=== PATIENT | male | born 1930 | race Caucasian/White ===

== ENCOUNTER 2020-03-04 18:50 | Inpatient (IN) ==
--- NOTE | 2020-03-04 19:11 | DR.AMS ---
HPI - Time Seen Time seen: 19:01 - Complaint Cheif Complaint Doctors Comments: Patient sent from snf in [place] for hypotension. EMS states they gave patient fluid bolus enroute and his blood pressure came up from 89/57 to137/73. Patient was 97 % on 4 liters. Patient n ot eating or drinking well at the snf according to nursing staff. Patient with multiple medical complaints including: Alheimers disease, diabetes, atrial fibrillation anemia, wheezing, SOB and B12 deficiency. Patient answer question but is slow to answer and do not complains of SOB or cough. States he smokes but seems to get stuck on that thought. Patient is a DNR and is COVID-19 positive. - COVID-19 Coronavirus risk:travel/contact w/high risk person: Yes Coronavirus symptoms experienced: Shortness of Breath - Reviewed Nurses Notes Reviewed: Yes - Source History Provided: EMS - Mode of Arrival Mode of Arrival: EMS - Timing Came On: Suddenly Symptoms: Worsening Symptom Onset: Unknown - Duration Duration: Unknown - Quality Quality: Not Eating - Severity Severity: Moderate - Context Recent: None History Of: Dementia, Diabetes - Associated Signs and Symptoms Associated Signs and Symptoms: Generalized Weakness, Confusion, Change in Memory, Decreased Oral Intake ROS - Review of Systems Constitutional: No Symptoms Reported, Loss of Appetite Eyes: No Symptoms Reported ENTM: No Symptoms Reported Respiratoy: No Symptoms Reported, Short of Breath Cardiovascular: No Symptoms Reported Gastrointestinal/Abdominal: No Symptoms Reported Genitourinary: No Symptoms Reported Neurological: No Symptoms Reported, Problems Walking Musculoskeletal: No Symptoms Reported Integumentary: No Symptoms Reported Hematologic/Lymphatic: No Symptoms Reported, Anemia Endocrine: Decreased Appetite Psychiatric: No Symptoms Reported PE - General Limitations: No Limitations General Appearance: Alert, In No Apparent Distress, Other (dementia) - Head Head Exam: Normal Inspection, Atraumatic, Normocephalic Head Exam Physical: negative: Laceration, Abrasion, Contusion, Hematoma, Raccoon Eyes, Lozano's Sign, Tenderness of Temporal Artery, CSF Rhinorrhea, CSF Otorrhea, Other - Eyes Eye exam: Normal Appearance, PERRL, EOMI. negative: Scleral Icterus, Conjunctival Injection, Nystagmus, Miosis, Mydrasis, Periorbital Swelling, Periorbital Tenderness, Other Pupils: Regular, Round: Bilateral - ENT ENT Exam: Normal Exam, Normal Oropharynx, Normal External Ear Exam, Mucous Membranes Moist External Ear Exam: Normal External Inspection TM/Canal Exam: Bilateral Normal Nose Exam: Normal Nose Exam Mouth Exam: Normal Inspection. negative: Drooling, Trismus, Lip Swelling, Tongue Elevation, Tongue Swelling, Laceration, Other Throat Exam: Normal Inspection - Neck Neck Exam: Normal Inspection, Full ROM, Trachea Midline - Chest Chest Inspection: Normal Inspection, Symmetric Chest Wall Rise - Respiratory Respiratory Exam: Prolonged Expiratory Phase Respiratory Exam: Bilateral Wheezing, Bilateral Decreased Breath Sounds - Cardiovascular Cardiovascular Exam: Regular Rate, Normal Rhythm, Normal Heart Sounds, Systolic Murmur - Abdominal Exam Abdominal Exam: Normal Inspection, Normal Bowel Sounds, Soft. negative: Distention, Tenderness, Guarding, Rebound, Rigidity, Dimnished Bowel Sounds, Hyperactive Bowel Sounds, Hypoactive Bowel Sounds, Organomegaly, Trauma, Incision, Ascites, Mass, Bruit, Pulsatile Mass, Hernia, Other Abdominal Tenderness: negative: RUQ, RLQ, LUQ, LLQ, Epigastrium, Suprapubic, Diffuse, Mild, Moderate, Severe, Other - Extremities Extremities Exam: Normal Inspection, Full ROM, Normal Capillary Refill - Back Back Exam: Normal Inspection, Full ROM. negative: Tenderness, (R) CVA Tenderness, (L) CVA Tenderness, Muscle Spasm, Paraspinal Tenderness, Vertebral Tenderness, Rashes, (R) Sciatic Notch Tenderness, (L) Sciatic Notch Tendern, (R) Straight Leg Raise, (L) Straight Leg Raise, Other - Neurological Neurological Exam: Alert, Reflexes Normal. negative: Oriented X3, Normal Gait (gait not tested) Patient Oriented To: Person Speech: Expressive Aphasia Cranial Nerve Exam: EOM Function (II, III, IV, ): Normal, Facial Sensation (V): Normal Cerebellar Function: negative: Normal Gait (not tested) Motor Strength - LUE: 5/5 Motor Strength - RUE: 5/5 Upper Motor Neuron Exam: Babinski Sign: Normal DTR: bicep (L): 2+, bicep (R): 2+, Patellar (L): 2+, patellar (R): 2+ - Psychological Psychiatric Exam: Normal Affect, Flat Affect Expanded Psychiatric Exam: Poor Eye Contact - Skin Skin Exam: Warm, Dry, Intact, Normal Color, Rash (lower legs with superficial varcose viens.) - Vitals Vital Signs: Temp Pulse Pulse Resp BP BP Pulse Ox 03/04/20 21:30 116 H 24 158/93 100 03/04/20 21:00 119 H 28 H 114/55 97 03/04/20 20:30 120 H 34 H 137/63 96 03/04/20 20:00 121 H 29 H 115/70 99 03/04/20 19:52 120 H 26 H 133/71 96 03/04/20 19:30 118 H 29 H 136/65 99 03/04/20 19:07 121 H 33 H 141/66 96 03/04/20 18:52 98.4 F 123 H 24 133/71 97 Course - Consultation Called: 23:48 Call Returned: 23:48 (Dr. Baumann to admit) - Education/Counseling Education/Counseling: Patient Educated On: Treatment, Diagnosis, Needs for Follow Up ROR - Labs Reviewed Laboratory Results Reviewed?: Yes (All labs and x-ray results reviewed and discussed with patient) Result Diagrams: 03/04/20 19:48 03/04/20 20:50 - XRAY XRAY Interpreted by: Radiologist (CXR: Interstitial changes the left lung base and right upper lobe which maybe due to pneumonia.) - EKG Rate: 123 Rhythm: NSR, ST Block: RBBB Hypertrophy: LVH ST: Nonsp - Labs Reviewed Laboratory: WBC 9.0 X10^3/uL (3.6-10.0) 03/04/20 19:48 RBC 3.89 X10^6/uL (4.7-6.0) L 03/04/20 19:48 Hgb 12.3 g/dL (13.5-18.0) L 03/04/20 19:48 Hct 37.4 % (42.0-54.0) L 03/04/20 19:48 MCV 96.0 fL (80.0-100.0) 03/04/20 19:48 MCH 31.5 pg (27.0-34.0) 03/04/20 19:48 MCHC 32.8 g/dL (33.0-35.0) L 03/04/20 19:48 RDW 16.7 % (11.6-16.5) H 03/04/20 19:48 Plt Count 260 X10^3/uL (150.0-450.0) 03/04/20 19:48 MPV 6.9 fL (7.4-11.0) L 03/04/20 19:48 Neut % (Auto) 77.0 % (42.0-75.0) H 03/04/20 19:48 Lymph % (Auto) 15.5 % (21.0-51.0) L 03/04/20 19:48 [place] % (Auto) 6.6 % (0.0-13.0) 03/04/20 19:48 Eos % (Auto) 0.3 % (0.9-2.9) L 03/04/20 19:48 Baso % (Auto) 0.6 % (0.2-1.0) 03/04/20 19:48 Neut # (Auto) 6.9 x10^3/uL (2.2-4.8) H 03/04/20 19:48 Lymph # (Auto) 1.4 X10^3/uL (1.3-2.9) 03/04/20 19:48 [place] # (Auto) 0.6 x10^3/uL (0.3-0.8) 03/04/20 19:48 Eos # (Auto) 0.0 x10^3/uL (0.0-0.2) 03/04/20 19:48 Baso # (Auto) 0.1 X10^3/uL (0.0-0.1) 03/04/20 19:48 Absolute Nucleated RBC 0.1 /100WBC 03/04/20 19:48 PT 14.3 SECONDS (11.8-14.3) 03/04/20 20:50 INR Target Range - 03/04/20 20:50 INR 1.15 (0.8-1.3) 03/04/20 20:50 APTT 20.2 SECONDS (22.9-36.5) L 03/04/20 Unknown PTT Comment - 03/04/20 Unknown Sample Site Rr 03/04/20 20:00 ABG pH 7.470 (7.35-7.45) H 03/04/20 20:00 ABG pCO2 29.0 mmHg (35.0-45.0) L 03/04/20 20:00 ABG pO2 83.0 mmHg (80.0-100.0) 03/04/20 20:00 ABG HCO3 21.1 mmol/L (22-26) L 03/04/20 20:00 ABG O2 Saturation 97.0 % (90-100) 03/04/20 20:00 ABG Base Excess -1.6 mmol/L (-2.0-2.0) 03/04/20 20:00 Glynn Test Pos 03/04/20 20:00 A-a Gradient 109.0 mmHg 03/04/20 20:00 FiO2 32.0 03/04/20 20:00 Blood Gas Comments Yisel well ae 03/04/20 20:00 Sodium 163 mmol/L (136-145) H* 03/04/20 20:50 Corrected Sodium 164 mmol/L (136-145) H 03/04/20 20:50 Potassium 4.8 mmol/L (3.5-5.1) 03/04/20 20:50 Chloride 127 mmol/L (98-107) H* 03/04/20 20:50 Carbon Dioxide 24.5 mmol/L (21-32) 03/04/20 20:50 BUN 62 mg/dL (7-18) H 03/04/20 20:50 Creatinine 2.45 mg/dL (0.70-1.30) H 03/04/20 20:50 Est GFR (MDRD) Af Amer 32 (>60) L 03/04/20 20:50 Est GFR (MDRD) Non-Af 27 (>60) L 03/04/20 20:50 Glucose 142 mg/dL (65-99) H 03/04/20 20:50 Calcium 9.1 mg/dL (8.5-10.1) 03/04/20 20:50 Corrected Calcium 10.5 mg/dL (8.5-10.1) H 03/04/20 20:50 Magnesium 2.7 mg/dL (1.7-2.9) 03/04/20 20:50 Ferritin 690 ng/mL (26-388) H 03/04/20 20:50 Total Bilirubin 0.50 mg/dL (0.2-1.0) 03/04/20 20:50 AST 43 Units/L (15-37) H 03/04/20 20:50 ALT 18 Units/L (12-78) 03/04/20 20:50 Alkaline Phosphatase 68 Units/L (46-116) 03/04/20 20:50 Creatine Kinase 116 Units/L (39-308) 03/04/20 20:50 CK-MB (CK-2) 19.1 ng/mL (0-4.0) H* 03/04/20 20:50 CK/CKMB % Calc 16.5 % (<4) 03/04/20 20:50 Troponin I 6.36 ng/mL (0-1.5) H* 03/04/20 20:50 C-Reactive Protein 34.70 mg/L (0-3.0) H 03/04/20 20:50 Total Protein 6.2 g/dL (6.4-8.2) L 03/04/20 20:50 Albumin 2.2 g/dL (3.4-5.0) L 03/04/20 20:50 Globulin 4.0 g/dL (2.5-4.5) 03/04/20 20:50 Albumin/Globulin Ratio 0.6 Ratio (1.1-2.1) L 03/04/20 20:50 SARS-CoV-2 (PCR) Positive (NEGATIVE) A 03/04/20 22:31 Opioid - Opioid Risk Tool Total: 0 Total Score Risk Category: Low Risk - Diagnosis Discharge Problem: COVID-19 virus infection, Hypernatremia, Dehydration, Pneumonia due to COVID-19 virus, Chronic kidney disease (CKD), Hyperglycemia - Discharge Plan Disposition: ADMITTED INPATIENT Condition: Stable - Follow ups/Referrals Follow ups/Referrals: NFD,None [STAFF PHYSICIAN] - 3 days - Instructions
[2020-03-04] MEDS ORDERED: NS 1000 ML 1,000 ML IV ONE (19:32)
[2020-03-04] MEDS ORDERED: NS 1000 ML 1,000 ML ONE (19:53)
[2020-03-04 19:58] LABS: BASOPHILS # (AUTO) 0.1 X10^3/uL (0.0-0.1); BASOPHILS % (AUTO) 0.6 % (0.2-1.0); EOSINOPHILS % (AUTO) 0.3 % (0.9-2.9); HEMATOCRIT 37.4 % (42.0-54.0); HEMOGLOBIN 12.3 g/dL (13.5-18.0); LYMPHOCYTES # (AUTO) 1.4 X10^3/uL (1.3-2.9); LYMPHOCYTES % (AUTO) 15.5 % (21.0-51.0); MEAN CORPUSCULAR HEMOGLOBIN 31.5 pg (27.0-34.0); MEAN CORPUSCULAR HGB CONC 32.8 g/dL (33.0-35.0); MEAN PLATELET VOLUME 6.9 fL (7.4-11.0); MONOCYTES # (AUTO) 0.6 x10^3/uL (0.3-0.8); MONOCYTES % (AUTO) 6.6 % (0.0-13.0); NEUTROPHILS # (AUTO) 6.9 x10^3/uL (2.2-4.8); PLATELET COUNT 260 X10^3/uL (150.0-450.0); RED BLOOD COUNT 3.89 X10^6/uL (4.7-6.0); RED CELL DISTRIBUTION WIDTH 16.7 % (11.6-16.5)
[2020-03-04] MEDS ORDERED: NS 1000 ML 0 ML ONE (20:04)
[2020-03-04 20:06] LABS: ABG BASE EXCESS -1.6 mmol/L (-2.0-2.0); ABG HCO3 21.1 mmol/L (22-26)
[2020-03-04 20:07] LABS: ABG ALLEN TEST POS
--- NOTE | 2020-03-04 20:10 | RAD ---
HISTORYPT IN ED VIA STRETCHER FROM [facility] PER [facility] WITH C/O LOW O2 SAT AND HYPOTENSIVE. PT ALERT BUT CONFUSED. HAS HX OF ALZHEIMERS. IV 20G IN LEFT AC WITH NS INFUSING PER EMS. TESTED POSITIVE FOR COVID A LITTLE OVER A TRUNCATED ...STUDYCHEST, 1 VIEWCOMPARISONNoneFINDINGSThe trachea is midline. The cardiac silhouette is unremarkable . The lungs demonstrate some interstitial changes in left lung base and right upper lobe which may be due to pneumonia however there are no priors for comparison. The bony thorax is unremarkable.IMPRESSIONInterstitial changes the left lung base are right upper lobe as above which could be due to pneumonia.Electronically signed by: JEAN MARIE CHESTER (Mar 04, 2020 20:09:31)
[2020-03-04] MEDS ORDERED: SOLU-Medrol 125 MG VIAL IVP ONE (20:12)
[2020-03-04] MEDS ORDERED: ROCEPHIN VIAL 1 GRAM 1 G in NS 100 ML IV + SPIKE MINIBAG* 100 ML IV SCH (20:15)
[2020-03-04] MEDS ORDERED: SOLU-Medrol 125 MG VIAL ONE (20:25)
[2020-03-04] MEDS ORDERED: NS 100 ML IV + SPIKE MINIBAG* 100 ML IV ONE (20:26)
[2020-03-04] MEDS ORDERED: ROCEPHIN VIAL 1 GRAM ONE (20:26)
[2020-03-04 20:35] LABS: ALBUMIN 2.2 g/dL (3.4-5.0); CALCIUM 9.1 mg/dL (8.5-10.1); CARBON DIOXIDE 24.5 mmol/L (21-32); CKMB % 16.5 % (<4); COR CA(FOR HYPOALB) 10.5 mg/dL (8.5-10.1); CREATININE 2.45 mg/dL (0.70-1.30); MAGNESIUM 2.7 mg/dL (1.7-2.9); TOTAL PROTEIN 6.2 g/dL (6.4-8.2)
[2020-03-04 21:08] LABS: TROPONIN I 6.36 ng/mL (0-1.5)
[2020-03-04 21:09] LABS: CREATINE KINASE MB 19.1 ng/mL (0-4.0)
[2020-03-04] MEDS ORDERED: NS 1/2 1000 ML IV 1,000 ML IV ONE (21:16)
[2020-03-04] MEDS: NS 1/2 1000 ML IV 1,000 ML IV SCH (21:19)
[2020-03-05] MEDS ORDERED: NS 1/2 1000 ML IV 1,000 ML IV SCH (01:00)
[2020-03-05 03:20] VITALS: BMI 25.5
[2020-03-05] MEDS ORDERED: DUONEB 0.5 MG/3 MG (3 mL) NEB ONE (03:38)
[2020-03-05] MEDS ORDERED: PHARMACY CONSULT LTC MEDICATIONS XX SCH (04:00)
[2020-03-05] MEDS: DUONEB 0.5 MG/3 MG (3 mL) NEB SCH ×3 (05:47→22:15)
[2020-03-05 06:27] LABS: BASOPHILS % (AUTO) 0.1 % (0.2-1.0); HEMATOCRIT 32.5 % (42.0-54.0); HEMOGLOBIN 10.7 g/dL (13.5-18.0); LYMPHOCYTES # (AUTO) 0.7 X10^3/uL (1.3-2.9); LYMPHOCYTES % (AUTO) 5.8 % (21.0-51.0); MEAN CORPUSCULAR HEMOGLOBIN 31.9 pg (27.0-34.0); MEAN CORPUSCULAR VOLUME 96.6 fL (80.0-100.0); MEAN PLATELET VOLUME 7.6 fL (7.4-11.0); MONOCYTES # (AUTO) 0.2 x10^3/uL (0.3-0.8); MONOCYTES % (AUTO) 1.8 % (0.0-13.0); NEUTROPHILS # (AUTO) 11.3 x10^3/uL (2.2-4.8); NEUTROPHILS % (AUTO) 92.3 % (42.0-75.0); PLATELET COUNT 114 X10^3/uL (150.0-450.0); RED BLOOD COUNT 3.36 X10^6/uL (4.7-6.0); RED CELL DISTRIBUTION WIDTH 16.3 % (11.6-16.5); WHITE BLOOD COUNT 12.2 X10^3/uL (3.6-10.0)
[2020-03-05 06:39] LABS: ALBUMIN 2.1 g/dL (3.4-5.0); CALCIUM 8.4 mg/dL (8.5-10.1); CARBON DIOXIDE 19.9 mmol/L (21-32); COR CA(FOR HYPOALB) 9.9 mg/dL (8.5-10.1); CREATININE 1.99 mg/dL (0.70-1.30)
[2020-03-05 07:15] LABS: BAND NEUTROPHILS % 10 % (0-10)
[2020-03-05 07:16] LABS: PLATELET MORPHOLOGY COMMENT NORMAL (NORMAL)
[2020-03-05] MEDS ORDERED: VITAMIN D (1.25MG) PO SCH (09:00)
[2020-03-05] MEDS ORDERED: LOVENOX INJ 30 MG SYR SC SCH ×2 (09:00)
[2020-03-05] MEDS ORDERED: NS 1/2 1000 ML IV 0 ML IV ONE (09:51)
[2020-03-05] MEDS: NS 1/2 1000 ML IV 1,000 ML IV SCH (09:52)
[2020-03-05] MEDS: DECADRON TAB PO SCH (09:53)
[2020-03-05] MEDS: D5W 1000 ML IV 1,000 ML IV SCH ×2 (09:59→18:51)
[2020-03-05] MEDS: PULMICORT NEB TX 0.5 MG NEB SCH ×2 (10:00→22:15)
[2020-03-05 10:15] LABS: CKMB % 12.7 % (<4)
[2020-03-05 10:19] LABS: CREATINE KINASE MB 19.4 ng/mL (0-4.0); TROPONIN I 8.45 ng/mL (0-1.5)
[2020-03-05] MEDS: LEVAQUIN PREMIX IV 500 MG 500 MG/100 ML BAG IV SCH (14:57)
[2020-03-05 15:30] LABS: CKMB % 10.9 % (<4)
[2020-03-05 15:38] LABS: CREATINE KINASE MB 13.2 ng/mL (0-4.0); TROPONIN I 8.92 ng/mL (0-1.5)
[2020-03-05] MEDS ORDERED: ROCEPHIN VIAL 1 GRAM 1 G in NS 100 ML IV + SPIKE MINIBAG* 100 ML IV SCH (21:00)
[2020-03-05 21:18] LABS: CKMB % 10.7 % (<4)
[2020-03-05 21:25] LABS: CREATINE KINASE MB 10.8 ng/mL (0-4.0); TROPONIN I 7.37 ng/mL (0-1.5)
--- NOTE | 2020-03-05 21:47 | DR.H&P ---
H&P - History & Physical for Day of: H&P Date: 03/04/20 - Chief Complaint Chief Complaint: HYPOXIA, HYPOTENSION, COVID 19 POSITIVE, DECREASED ORAL INTAKE, SHORTNESS OF BREATH, COUGH, AND WEAKNESS - History of Present Illness History of Present Illness: IS A 89 YEAR OLD RESIDENT OF [facility]. HE PRESENTED TO THE HOSPITAL WITH REPORTS OF HYPOXIA, HYPOTENSION, COVID 19 POSITIVE, DECREASED ORAL INTAKE, SHORTNESS OF BREATH, COUGH, AND WEAKNESS. SYMPTOMS STARTED APPROXIMATELY ONE WEEK PRIOR. APPARENTLY, HIS BLOOD PRESSURE WAS NOTED TO BE 89/57 WHEN EMS ARRIVED TO TRANSPORT HIM. THEY GAVE HIM A FLUID BOLUS IN ROUTE. OXYGEN SATURATIONS WERE IN THE 80s WHEN EMS ARRIVED TO SCENE. BLOOD PRESSURE WAS NOTED TO INCREASE TO 137/73. HE WAS WEARING OXYGEN VIA NASAL CANNULA AT 4LPM ON ARRIVAL. HIS PAST MEDICAL HISTORY INCLUDES: DEMENTIA, ALZHEIMERS, CAD, HYPERLIPIDEMAI, HTN, A-FIB, GERD, BPH, AND DIABETES TYPE II. HE IS A DNR. ON ARRIVAL TO THE ER, VITALS WERE 98.4-123-24-97%-133/71. LABS WERE OBTAINED. ABNORMAL LAB VALUES INCLUDE THE FOLLOWING: RBC 3.89, HGB 12.3, HCT 37.4, SODIUM 163, CHLORIDE 127, BUN 62, CREATININE 2.45, GLUCOSE 142, FERRITIN 690, AST 43, CK-MB 19.1, TROPONIN 6.36, CRP 34.70, TOTAL PROTEIN 6.2, ALBUMIN 2.2. AN ABG WAS OBTAINED AND REVEALED: PH 7.470, PC02 29, P02 83, HC03 21.1, 02 SATURATION 97, FI02 32. COVID-19 POSITIVE. A CHEST XRAY WAS OBTAINED AND REVEALED: Interstitial changes the left lung base are right upper lobe as above which could be due to pneumonia. AN EKG WAS OBTAINED AND REVEALED: SINUS TACHYCARDIA WITH HR 123, INCOMPLETE RIGHT BUNDLE BRANCH BLOCK. PATIENT IS DNR A ND DOES NOT REQUEST TRANSFER FOR TREATMENT OF POSSIBLE PA. HE WAS ADMITTED TO THE HOSPITAL FOR FURTHER EVALUATION AND TREATMENT OF PNEUMONIA DUE TO COVID-19, ACUTE PA, HYPERNATREMIA, DEHYDRATION, AND GENERALIZED WEAKNESS. HE WAS GIVEN ROCEPHIN 1G IV X 1, SOLU-MEDROL 125MG IV X 1, AND A NORMAL SALINE BOLUS IN THE ER. HE WAS STARTED ON D5W AT 125 ML/HR, DUONEBS TID, PULMICORT NEBS BID, DECADRON 6MG PO DAILY, LOVENOX 30MG SC DAILY, LEVAQUIN 500MG IV DAILY, VITAMIN A DAILY, AND VITAMIN D DAILY. WE WILL REVIEW HIS HOME MEDICATIONS. WE WILL OBTAIN SERIAL CARDIAC ENZYMES AND EKGs. OTHERWISE, WE WILL FOLLOW UP WITH AM LABS, CHEST XRAY, ABG, AND CONTINUE TO MONITOR. - Past Medical History Past Medical History: Alzheimers, Anemia, Coronary Artery Disease, Dementia, Diabetes, Dyslipidemia, GERD - Social History Alcohol Use: None Drug Use: None - Medications Home Medications: No Known Drug Allergies Allergy (Verified 03/04/20 19:27) CONTINUE taking the following medications acetaminophen [Tylenol] 650 mg PO Q4H PRN 03/04/20 [History] aspirin [Aspir-81] 81 mg PO DAILY 03/04/20 [History] bisacodyl [Dulcolax (bisacodyl)] 10 mg PO Q24H PRN 03/04/20 [History] carboxymethylcellulose sodium 2 drp OPHTHALMIC (EYE) BID PRN 03/04/20 [History] clopidogrel [Plavix] 75 mg PO DAILY 03/04/20 [History] cyanocobalamin (vitamin B-12) 1,000 mcg IM DAILY 03/04/20 [History] diltiazem HCl [Cardizem] 120 mg PO DAILY 03/04/20 [History] folic acid 1 mg PO DAILY 03/04/20 [History] hydralazine 50 mg PO BID 03/04/20 [History] hydrochlorothiazide 12.5 mg PO DAILY 03/04/20 [History] ipratropium-albuterol [Combivent Respimat] 3 puff INHALATION Q4-6H PRN 03/04/20 [History] ipratropium-albuterol [Combivent Respimat] 20 - 100 puff INHALATION Q6H PRN 03/04/20 [History] lisinopril [Zestril] 10 mg PO DAILY 03/04/20 [History] megestrol 40 mg PO BID 03/04/20 [History] memantine [Namenda] 5 mg PO BID 03/04/20 [History] polyethylene glycol 3350 [Miralax] 17 g PO DAILY 03/04/20 [History] potassium chloride [K-Tab] 10 meq PO TID 03/04/20 [History] rivastigmine [Exelon] 4.6 mg TRANSDERMAL DAILY 03/04/20 [History] sertraline [Zoloft] 25 mg PO BID 03/04/20 [History] simvastatin [Zocor] 10 mg PO HS 03/04/20 [History] tamsulosin [Flomax] 0.4 mg PO DAILY 03/04/20 [History] tramadol 50 mg PO Q6H PRN 03/04/20 [History] - Review of Systems Constitutional: See HPI, Weakness, Malaise, Other (DECREASED ORAL INTAKE ) Eyes: No Symptoms Reported ENT: No Symptoms Reported Respiratory: See HPI, Cough, Shortness of Breath, SOB with Excertion, Wheezing Cardiovascular: No Symptoms Reported Gastrointestinal: No Symptoms Reported Genitourinary: No Symptoms Reported Musculoskeletal: No Symptoms Reported Skin: No Symptoms Reported Neurological: Weakness - Physical Exam Vital Signs: Temperature 98.0 F Pulse Rate [Right Radial] 117 Pulse Rate 98 Respiratory Rate 22 Blood Pressure [Right Arm] 139/66 Blood Pressure 140/70 O2 Sat by Pulse Oximetry 100 Oriented: Not Oriented Eyes: Normal Ear: Normal Nose: Normal Throat: Normal Respiratory: Diminished Throughout, Wheezes Throughout Cardiovascular: Tachycardia : Normal Auscultation: Bowel Sounds: Normal Palpation: Normal Tenderness: Normal Skin: Normal Musculoskeletal: Normal Psychiatric: Normal Mood Description: Calm Affect: Normal Speech Pattern: Clear - Assessment/Plan (1) Pneumonia due to COVID-19 virus Status: Acute Plan: ADMIT, D5W AT 125 ML/HR, DUONEBS TID, PULMICORT NEBS BID, DECADRON 6MG PO DAILY, LOVENOX 30MG SC DAILY, LEVAQUIN 500MG IV DAILY, VITAMIN A DAILY, AND VITAMIN D DAILY. WE WILL REVIEW HIS HOME MEDICATIONS. SUPPLEMENTAL OXYGEN (2) Acute PA Qualifiers: Myocardial infarction type: unspecified Involved coronary artery: unspecified coronary artery Qualified Code(s): I21.9 - Acute myocardial infarction, unspecified Status: Acute (3) Generalized weakness Status: Acute (4) Hypernatremia Status: Acute (5) Dehydration Status: Acute - Allergies Allergies/Adverse Reactions: Allergies Allergy/AdvReac Type Severity Reaction Status Date / Time No Known Drug Allergies Allergy Verified 03/04/20 19:27
[2020-03-06] MEDS: D5W 1000 ML IV 1,000 ML IV SCH ×4 (03:57→18:23)
[2020-03-06] MEDS: DUONEB 0.5 MG/3 MG (3 mL) NEB SCH ×3 (05:30→22:00)
[2020-03-06 06:09] LABS: BASOPHILS % (AUTO) 0.4 % (0.2-1.0); HEMATOCRIT 28.5 % (42.0-54.0); HEMOGLOBIN 9.7 g/dL (13.5-18.0); LYMPHOCYTES # (AUTO) 1.1 X10^3/uL (1.3-2.9); LYMPHOCYTES % (AUTO) 12.4 % (21.0-51.0); MEAN CORPUSCULAR HEMOGLOBIN 32.1 pg (27.0-34.0); MEAN CORPUSCULAR HGB CONC 33.8 g/dL (33.0-35.0); MEAN CORPUSCULAR VOLUME 94.8 fL (80.0-100.0); MEAN PLATELET VOLUME 7.9 fL (7.4-11.0); MONOCYTES # (AUTO) 0.3 x10^3/uL (0.3-0.8); MONOCYTES % (AUTO) 3.3 % (0.0-13.0); NEUTROPHILS # (AUTO) 7.5 x10^3/uL (2.2-4.8); NEUTROPHILS % (AUTO) 83.9 % (42.0-75.0); PLATELET COUNT 111 X10^3/uL (150.0-450.0); RED BLOOD COUNT 3.01 X10^6/uL (4.7-6.0); WHITE BLOOD COUNT 8.9 X10^3/uL (3.6-10.0)
[2020-03-06 06:25] LABS: ABG BASE EXCESS -3.5 mmol/L (-2.0-2.0); ABG HCO3 20.1 mmol/L (22-26)
[2020-03-06 06:28] LABS: ABG ALLEN TEST POSS
[2020-03-06 07:19] LABS: CALCIUM 8.2 mg/dL (8.5-10.1); CARBON DIOXIDE 21.9 mmol/L (21-32); CKMB % 9.9 % (<4); COR CA(FOR HYPOALB) 9.8 mg/dL (8.5-10.1); CREATININE 1.66 mg/dL (0.70-1.30); TOTAL PROTEIN 5.5 g/dL (6.4-8.2)
[2020-03-06 07:30] LABS: CREATINE KINASE MB 7.7 ng/mL (0-4.0); TROPONIN I 7.19 ng/mL (0-1.5)
[2020-03-06 07:58] LABS: PLATELET MORPHOLOGY COMMENT NORMAL (NORMAL)
--- NOTE | 2020-03-06 08:14 | RAD ---
HISTORYShort of breathSTUDYCHEST, 1 [id number] view of the chestFINDINGSThe cardiac and mediastinal contours appear within normal limits. Stable mild scattered bilateral interstitial opacities. No pleural effusion or pneumothorax.IMPRESSIONNo significant change in mild scattered interstitial opacities. This could be due to pneumonia.Electronically signed by: Abraham Conner (Mar 06, 2020 08:13:13)
[2020-03-06] MEDS ORDERED: ULTRAM PO PRN (08:29)
[2020-03-06] MEDS ORDERED: DULCOLAX TAB EC 5 MG PO PRN (08:29)
[2020-03-06] MEDS ORDERED: TYLENOL 325 MG TAB PO PRN (08:29)
[2020-03-06] MEDS ORDERED: ASPIRIN EC 81 MG PO SCH (09:00)
[2020-03-06] MEDS: PULMICORT NEB TX 0.5 MG NEB SCH ×2 (10:00→22:00)
[2020-03-06] MEDS: LEVAQUIN PREMIX IV 500 MG 500 MG/100 ML BAG IV SCH (10:35)
[2020-03-06] MEDS: LOVENOX INJ 80 MG SYR SC SCH ×2 (10:36→22:23)
[2020-03-06] MEDS: EXELON PATCH TD SCH (15:25)
[2020-03-06] MEDS: ZOLOFT PO SCH ×2 (16:14→22:34)
[2020-03-06] MEDS: CARDIZEM CD 120 MG 24-HR PO SCH (16:14)
[2020-03-06] MEDS: APRESOLINE TAB 25 MG PO SCH ×2 (16:14→22:31)
[2020-03-06] MEDS: FLOMAX PO SCH (16:15)
[2020-03-06] MEDS: MIRALAX POWDER (1 DOSE 17 G) PO SCH (16:15)
[2020-03-06] MEDS: DECADRON TAB PO SCH (16:15)
[2020-03-06] MEDS: FOLIC ACID TAB 1 MG PO SCH (16:15)
[2020-03-06] MEDS: MEGACE PO SCH ×2 (16:15→22:31)
[2020-03-06] MEDS: NAMENDA TAB 10 MG PO SCH ×2 (16:16→22:32)
[2020-03-06] MEDS: ZESTRIL TAB 10 MG PO SCH (16:16)
[2020-03-06] MEDS: VITAMIN A PO SCH (16:16)
[2020-03-06] MEDS: ZOCOR TAB 10 MG PO SCH ×2 (22:32→22:33)
[2020-03-07] MEDS: D5W 1000 ML IV 1,000 ML IV SCH ×3 (01:28→17:04)
[2020-03-07 04:41] LABS: ABG ALLEN TEST POSS; ABG BASE EXCESS -2.8 mmol/L (-2.0-2.0); ABG HCO3 20.6 mmol/L (22-26)
[2020-03-07] MEDS: DUONEB 0.5 MG/3 MG (3 mL) NEB SCH ×3 (05:27→21:10)
--- NOTE | 2020-03-07 06:09 | RAD ---
HISTORYCOVID+STUDYCHEST, 1 [id number]/2020FINDINGSThe trachea is midline. The cardiac silhouette is unremarkable. Patchy bibasilar opacities. No pleural effusion or pneumothorax.. The bony thorax is unremarkable.IMPRESSIONPatchy bibasilar opacities; no change from previous 03/06/2020Electronically signed by: Zachary Samayoa (Mar 07, 2020 06:08:34)
[2020-03-07 06:44] LABS: ALANINE AMINOTRANSFERASE 20 Units/L (12-78); ALBUMIN 1.9 g/dL (3.4-5.0); ALKALINE PHOSPHATASE 53 Units/L (46-116); ASPARTATE AMINO TRANSFERASE 25 Units/L (15-37); BLOOD UREA NITROGEN 34 mg/dL (7-18); CALCIUM 7.8 mg/dL (8.5-10.1); CARBON DIOXIDE 21.7 mmol/L (21-32); CHLORIDE 110 mmol/L (98-107); COR CA(FOR HYPOALB) 9.5 mg/dL (8.5-10.1); CREATININE 1.29 mg/dL (0.70-1.30); SODIUM 142 mmol/L (136-145); TOTAL PROTEIN 5.3 g/dL (6.4-8.2); eGFR NON BLACK RACES 56 (>60)
[2020-03-07 07:53] LABS: BASOPHILS % (AUTO) 0.3 % (0.2-1.0); EOSINOPHILS % (AUTO) 0.4 % (0.9-2.9); HEMATOCRIT 26.5 % (42.0-54.0); HEMOGLOBIN 9.2 g/dL (13.5-18.0); LYMPHOCYTES # (AUTO) 1.5 X10^3/uL (1.3-2.9); LYMPHOCYTES % (AUTO) 21.3 % (21.0-51.0); MEAN CORPUSCULAR HEMOGLOBIN 32.2 pg (27.0-34.0); MEAN CORPUSCULAR HGB CONC 34.8 g/dL (33.0-35.0); MEAN CORPUSCULAR VOLUME 92.7 fL (80.0-100.0); MEAN PLATELET VOLUME 7.5 fL (7.4-11.0); MONOCYTES # (AUTO) 0.4 x10^3/uL (0.3-0.8); MONOCYTES % (AUTO) 5.1 % (0.0-13.0); NEUTROPHILS # (AUTO) 5.2 x10^3/uL (2.2-4.8); NEUTROPHILS % (AUTO) 72.9 % (42.0-75.0); PLATELET COUNT 120 X10^3/uL (150.0-450.0); RED BLOOD COUNT 2.86 X10^6/uL (4.7-6.0); RED CELL DISTRIBUTION WIDTH 15.4 % (11.6-16.5); WHITE BLOOD COUNT 7.1 X10^3/uL (3.6-10.0)
[2020-03-07 08:41] LABS: BAND NEUTROPHILS % 6 % (0-10)
[2020-03-07 08:42] LABS: PLATELET MORPHOLOGY COMMENT NORMAL (NORMAL)
[2020-03-07] MEDS: PULMICORT NEB TX 0.5 MG NEB SCH ×2 (08:55→21:10)
[2020-03-07] MEDS: LOVENOX INJ 80 MG SYR SC SCH (09:38)
[2020-03-07] MEDS: EXELON PATCH TD SCH (09:39)
--- NOTE | 2020-03-07 11:55 | PCM.PROG ---
Progress Note - Progress Note for Day of Date of Exam: 03/06/20 - Subjective Subjective: IS BEING TREATED FOR PNEUMONIA DUE TO COVID-19, ACUTE IA, GENERALIZED WEAKNESS, AND HYPERNATREMIA. TODAY, HE IS ALERT, SITTING ON THE SIDE OF THE BED ON MORNING ROUNDS. HE CONTINUES WITH WEAKNESS, COUGH, AND SHORTNESS OF BREATH. HE ALSO REPORTS DIFFICULTY SWALLOWING. STAFF REPORTS THAT HE IS GETTING STRANGLED ON THICKENED LIQUIDS AND SOFT FOODS. ON EXAMINATION, HEART IS REGULAR IN RATE AND RHYTHM. BILATERAL LUNGS ARE NOTED WITH SCATTERED WHEEZING THROUGHOUT. ABDOMEN IS ROUND, SOFT, AND NON-TENDER WITH NORMAL BOWEL SOUNDS IN ALL QUADRANTS. HIS VITALS THIS MORNING ARE: 97.7-100-22-97%NC-149/68. LABS WERE OBTAINED. ABNORMAL LAB VALUES INCLUDE THE FOLLOWING: RBC 3.01, HGB 9. 7, HCT 28.5, PLT COUNT 111, SODIUM 152, CHLORIDE 119, BUN 53, CREATININE 1.66, GLUCOSE 136, CALCIUM 8.2, FERRITIN 522, CRP 29.50, TOTAL PROTEIN 2.0, CK-MB 7.7, TROPONIN HAS DECREASED TO 7.19. IT DID REACH 8.92 YESTERDAY. ABG REVEALED: PH 7.420, PC02 31, P02 107, HC03 20.1, 02 SAT 98, FI02 32. A CHEST XRAY WAS OBTAINED AND REVEALED: No significant change in mild scattered interstitial opacities. This could be due to pneumonia. HE IS CURRENTLY RECEIVING D5W AT 125 ML/HR, DUONEBS TID, PULMICORT NEBS BID, DECADRON 6MG PO DAILY, LOVENOX 30MG SC DAILY, LEVAQUIN 500MG IV DAILY, VITAMIN A DAILY, AND VITAMIN D DAILY. WE WILL CONTINUE WITH CURRENT PLAN OF CARE TODAY. OTHERWISE, WE WILL FOLLOW UP WITH AM LABS AND CHEST XRAY AND CONTINUE TO MONITOR. - Past Medical Family Social History Past Med/Fam/Surg Hx: No changes since H&P Allergies: Allergies No Known Drug Allergies Allergy (Verified 03/04/20 19:27) - Review of Systems ROS: No change since H&P - Vital Signs and I&O's Vital Signs: Temperature 97.8 F Pulse Rate [Right Radial] 84 Pulse Rate 84 Respiratory Rate 20 Blood Pressure [Right Arm] 140/65 Blood Pressure 140/70 O2 Sat by Pulse Oximetry 96 Intake and Output: Intake & Output 03/04/20 03/05/20 03/06/20 03/07/20 11:59 11:59 11:59 11:59 Intake Total 298 / 298 3536 / 3536 2996 / 2996 Balance 298 / 298 3536 / 3536 2996 / 2996 - Physical Exam Oriented: Person Eyes: Normal Ear: Normal Nose: Normal Throat: Normal Respiratory: Generalized, Diminished, Wheezes Cardiovascular: Normal : Normal Auscultation: Bowel Sounds: Normal Palpation: Normal Tenderness: Normal Skin: Normal Musculoskeletal: Normal Psychiatric: Normal Mood Description: Calm Affect: Normal Speech Pattern: Appropriate - Laboratory and Diagnostics Result Diagrams: 03/07/20 07:35 03/07/20 05:00 Labs: Laboratory WBC 7.1 X10^3/uL (3.6-10.0) 03/07/20 07:35 RBC 2.86 X10^6/uL (4.7-6.0) L 03/07/20 07:35 Hgb 9.2 g/dL (13.5-18.0) L 03/07/20 07:35 Hct 26.5 % (42.0-54.0) L 03/07/20 07:35 MCV 92.7 fL (80.0-100.0) 03/07/20 07:35 MCH 32.2 pg (27.0-34.0) 03/07/20 07:35 MCHC 34.8 g/dL (33.0-35.0) 03/07/20 07:35 RDW 15.4 % (11.6-16.5) 03/07/20 07:35 Plt Count 120 X10^3/uL (150.0-450.0) L 03/07/20 07:35 Plt Count Comment Decreased (ADEQUATE) 03/07/20 07:35 MPV 7.5 fL (7.4-11.0) 03/07/20 07:35 Neut % (Auto) 72.9 % (42.0-75.0) 03/07/20 07:35 Lymph % (Auto) 21.3 % (21.0-51.0) 03/07/20 07:35 [place] % (Auto) 5.1 % (0.0-13.0) 03/07/20 07:35 Eos % (Auto) 0.4 % (0.9-2.9) L 03/07/20 07:35 Baso % (Auto) 0.3 % (0.2-1.0) 03/07/20 07:35 Neut # (Auto) 5.2 x10^3/uL (2.2-4.8) H 03/07/20 07:35 Lymph # (Auto) 1.5 X10^3/uL (1.3-2.9) 03/07/20 07:35 [place] # (Auto) 0.4 x10^3/uL (0.3-0.8) 03/07/20 07:35 Eos # (Auto) 0.0 x10^3/uL (0.0-0.2) 03/07/20 07:35 Baso # (Auto) 0.0 X10^3/uL (0.0-0.1) 03/07/20 07:35 Absolute Nucleated RBC 0.0 /100WBC 03/07/20 07:35 Total Counted 100 03/07/20 07:35 Neutrophils % (Manual) 71 % (39-76) 03/07/20 07:35 Band Neutrophils % 6 % (0-10) 03/07/20 07:35 Lymphocytes % (Manual) 20 % (13-43) 03/07/20 07:35 Monocytes % (Manual) 4 % (4-9) 03/07/20 07:35 Plt Clumps, EDTA Rare 03/05/20 04:35 Plt Morphology Comment Normal (NORMAL) 03/07/20 07:35 RBC Morphology Normal (NORMAL) 03/07/20 07:35 PT 14.3 SECONDS (11.8-14.3) 03/04/20 20:50 INR Target Range - 03/04/20 20:50 INR 1.15 (0.8-1.3) 03/04/20 20:50 APTT 20.2 SECONDS (22.9-36.5) L 03/04/20 21:25 PTT Comment - 03/04/20 21:25 Sample Site R rad 03/07/20 04:30 ABG pH 7.430 (7.35-7.45) 03/07/20 04:30 ABG pCO2 31.0 mmHg (35.0-45.0) L 03/07/20 04:30 ABG pO2 85.0 mmHg (80.0-100.0) 03/07/20 04:30 ABG HCO3 20.6 mmol/L (22-26) L 03/07/20 04:30 ABG O2 Saturation 97.0 % (90-100) 03/07/20 04:30 ABG Base Excess -2.8 mmol/L (-2.0-2.0) L 03/07/20 04:30 Glynn Test Poss 03/07/20 04:30 A-a Gradient 104.0 mmHg 03/07/20 04:30 FiO2 32.0 03/07/20 04:30 Blood Gas Comments Yisel well kb 03/07/20 04:30 Sodium 142 mmol/L (136-145) 03/07/20 05:00 Corrected Sodium TNP 03/07/20 05:00 Potassium 3.1 mmol/L (3.5-5.1) L 03/07/20 05:00 Chloride 110 mmol/L (98-107) H 03/07/20 05:00 Carbon Dioxide 21.7 mmol/L (21-32) 03/07/20 05:00 BUN 34 mg/dL (7-18) H 03/07/20 05:00 Creatinine 1.29 mg/dL (0.70-1.30) 03/07/20 05:00 Est GFR (MDRD) Af Amer > 60 (>60) 03/07/20 05:00 Est GFR (MDRD) Non-Af 56 (>60) L 03/07/20 05:00 Glucose 104 mg/dL (65-99) H 03/07/20 05:00 Calcium 7.8 mg/dL (8.5-10.1) L 03/07/20 05:00 Corrected Calcium 9.5 mg/dL (8.5-10.1) 03/07/20 05:00 Magnesium 2.7 mg/dL (1.7-2.9) 03/04/20 20:50 Ferritin 405 ng/mL (26-388) H 03/07/20 05:00 Total Bilirubin 0.30 mg/dL (0.2-1.0) 03/07/20 05:00 AST 25 Units/L (15-37) 03/07/20 05:00 ALT 20 Units/L (12-78) 03/07/20 05:00 Alkaline Phosphatase 53 Units/L (46-116) 03/07/20 05:00 Creatine Kinase 78 Units/L (39-308) 03/06/20 04:25 CK-MB (CK-2) 7.7 ng/mL (0-4.0) H* 03/06/20 04:25 CK/CKMB % Calc 9.9 % (<4) 03/06/20 04:25 Troponin I 7.19 ng/mL (0-1.5) H* 03/06/20 04:25 C-Reactive Protein 9.00 mg/L (0-3.0) H 03/07/20 05:00 B-Natriuretic Peptide 444 pg/mL (0-79) H 03/05/20 04:35 Total Protein 5.3 g/dL (6.4-8.2) L 03/07/20 05:00 Albumin 1.9 g/dL (3.4-5.0) L 03/07/20 05:00 Globulin 3.4 g/dL (2.5-4.5) 03/07/20 05:00 Albumin/Globulin Ratio 0.6 Ratio (1.1-2.1) L 03/07/20 05:00 SARS-CoV-2 (PCR) Positive (NEGATIVE) A 03/04/20 22:31 - Plan (1) Pneumonia due to COVID-19 virus Status: Acute Plan: D5W AT 125 ML/HR, DUONEBS TID, PULMICORT NEBS BID, DECADRON 6MG PO DAILY, LOVENOX 30MG SC DAILY, LEVAQUIN 500MG IV DAILY, VITAMIN A DAILY, AND VITAMIN D DAILY. WE WILL REVIEW HIS HOME MEDICATIONS. SUPPLEMENTAL OXYGEN (2) Acute IA Status: Acute Qualifiers: Myocardial infarction type: unspecified Involved coronary artery: unspecified coronary artery Qualified Code(s): I21.9 - Acute myocardial infarction, unspecified (3) Generalized weakness Status: Acute (4) Hypernatremia Status: Acute (5) Dehydration Status: Acute
[2020-03-07] MEDS: LEVAQUIN PREMIX IV 500 MG 500 MG/100 ML BAG IV SCH (12:26)
[2020-03-07] MEDS: APRESOLINE TAB 25 MG PO SCH ×2 (15:54→22:51)
[2020-03-07] MEDS: CARDIZEM CD 120 MG 24-HR PO SCH (15:55)
[2020-03-07] MEDS: FLOMAX PO SCH (15:56)
[2020-03-07] MEDS: DECADRON TAB PO SCH (15:56)
[2020-03-07] MEDS: MEGACE PO SCH ×2 (15:59→22:51)
[2020-03-07] MEDS: FOLIC ACID TAB 1 MG PO SCH (15:59)
[2020-03-07] MEDS: MIRALAX POWDER (1 DOSE 17 G) PO SCH (15:59)
[2020-03-07] MEDS: NAMENDA TAB 10 MG PO SCH ×2 (15:59→22:51)
[2020-03-07] MEDS: VITAMIN A PO SCH (16:00)
[2020-03-07] MEDS: VITAMIN D3 125 mcg (5,000 UNITS) PO SCH (16:01)
[2020-03-07] MEDS: ZESTRIL TAB 10 MG PO SCH (16:02)
[2020-03-07] MEDS: ZOLOFT PO SCH ×2 (16:02→22:52)
[2020-03-07] MEDS ORDERED: K-RIDER 10 MEQ/NS 100 ML 10 MEQ/100 ML BAG IV ONE ×2 (22:04→23:15)
[2020-03-07] MEDS: K-RIDER 10 MEQ/NS 100 ML 10 MEQ/100 ML BAG IV PRN (22:15)
[2020-03-07] MEDS: ZOCOR TAB 10 MG PO SCH (22:51)
[2020-03-08] MEDS: K-RIDER 10 MEQ/NS 100 ML 10 MEQ/100 ML BAG IV PRN ×3 (00:15→18:10)
[2020-03-08 05:32] LABS: ABG ALLEN TEST POS; ABG BASE EXCESS -2.8 mmol/L (-2.0-2.0); ABG HCO3 20.4 mmol/L (22-26)
[2020-03-08] MEDS: D5W 1000 ML IV 1,000 ML IV SCH ×3 (05:59→16:07)
--- NOTE | 2020-03-08 06:01 | RAD ---
HISTORYCoronary artery disease, encephalopathySTUDYChest AP tubglyypPTCPBTRZQT80/25/2020FINDINGSThe heart is within normal limits in size. The nicholas are normal. The aorta is calcified and ectatic. The lungs are free of acute infiltrates. Small amount of residual subsegmental atelectasis remains in the lung bases bilaterally. No pleural effusions are identified. Bony thorax is unremarkable.IMPRESSIONNo definite infiltratesMinimal bibasilar subsegmental atelectasisElectronically signed by: ROSELIA PALACIO (Mar 08, 2020 05:59:29)
[2020-03-08] MEDS: DUONEB 0.5 MG/3 MG (3 mL) NEB SCH ×3 (06:05→21:08)
[2020-03-08 07:08] LABS: ALANINE AMINOTRANSFERASE 35 Units/L (12-78); ALKALINE PHOSPHATASE 58 Units/L (46-116); ASPARTATE AMINO TRANSFERASE 36 Units/L (15-37); BLOOD UREA NITROGEN 20 mg/dL (7-18); CALCIUM 8.1 mg/dL (8.5-10.1); CARBON DIOXIDE 20.9 mmol/L (21-32); CHLORIDE 108 mmol/L (98-107); COR CA(FOR HYPOALB) 9.7 mg/dL (8.5-10.1); CREATININE 1.13 mg/dL (0.70-1.30); SODIUM 139 mmol/L (136-145); TOTAL PROTEIN 5.4 g/dL (6.4-8.2); eGFR NON BLACK RACES > 60 (>60)
[2020-03-08 07:33] LABS: BASOPHILS % (AUTO) 0.8 % (0.2-1.0); EOSINOPHILS # (AUTO) 0.1 x10^3/uL (0.0-0.2); HEMATOCRIT 29.4 % (42.0-54.0); HEMOGLOBIN 10.3 g/dL (13.5-18.0); LYMPHOCYTES # (AUTO) 1.4 X10^3/uL (1.3-2.9); LYMPHOCYTES % (AUTO) 23.2 % (21.0-51.0); MEAN CORPUSCULAR HEMOGLOBIN 32.4 pg (27.0-34.0); MEAN CORPUSCULAR VOLUME 92.6 fL (80.0-100.0); MEAN PLATELET VOLUME 7.1 fL (7.4-11.0); MONOCYTES # (AUTO) 0.3 x10^3/uL (0.3-0.8); MONOCYTES % (AUTO) 5.4 % (0.0-13.0); NEUTROPHILS # (AUTO) 4.4 x10^3/uL (2.2-4.8); NEUTROPHILS % (AUTO) 69.6 % (42.0-75.0); PLATELET COUNT 54 X10^3/uL (150.0-450.0); RED BLOOD COUNT 3.17 X10^6/uL (4.7-6.0); RED CELL DISTRIBUTION WIDTH 15.2 % (11.6-16.5); WHITE BLOOD COUNT 6.3 X10^3/uL (3.6-10.0)
[2020-03-08 07:46] LABS: BAND NEUTROPHILS % 3 % (0-10); PLATELET MORPHOLOGY COMMENT NORMAL (NORMAL)
[2020-03-08] MEDS: PULMICORT NEB TX 0.5 MG NEB SCH ×2 (08:20→21:08)
[2020-03-08] MEDS ORDERED: LR 1000 ML IV 1,000 ML IV ONE (08:44)
[2020-03-08] MEDS ORDERED: DIPRIVAN VIAL 20 ML ONE (08:44)
--- NOTE | 2020-03-08 09:37 | OR.IMMED ---
Immediate Post-Op Note - Immediate Post-Op Note Pre-Op Diagnosis: dysphagia , poor oral intake , Covid 19 Post-Op Diagnosis: moderate gastritis , moderate size Hiatal hernia ,. esophageal dysfunctio disorder . dysphagia . Covid 19 Procedure: EGD. placement of PEG feeding tube . Description of Procedure: see report . Surgeon/Statistical Clerk: Lotus Findings: as above . Estimated Blood Loss: none. Drains: NONE Complications: none Condition: Stable (keep NPO for 24 h)
[2020-03-08] MEDS ORDERED: PROTONIX INJ 40 MG VIAL IVP ONE (09:40)
[2020-03-08] MEDS: APRESOLINE TAB 25 MG PO SCH ×2 (10:27→21:55)
[2020-03-08] MEDS: MEGACE PO SCH ×2 (10:28→21:58)
[2020-03-08] MEDS: CARDIZEM CD 120 MG 24-HR PO SCH (10:28)
[2020-03-08] MEDS: FOLIC ACID TAB 1 MG PO SCH (10:28)
[2020-03-08] MEDS: FLOMAX PO SCH (10:28)
[2020-03-08] MEDS: DECADRON TAB PO SCH (10:28)
[2020-03-08] MEDS: VITAMIN A PO SCH (10:29)
[2020-03-08] MEDS: ZESTRIL TAB 10 MG PO SCH (10:29)
[2020-03-08] MEDS: MIRALAX POWDER (1 DOSE 17 G) PO SCH (10:29)
[2020-03-08] MEDS: VITAMIN D3 125 mcg (5,000 UNITS) PO SCH (10:29)
[2020-03-08] MEDS: NAMENDA TAB 10 MG PO SCH ×2 (10:29→21:58)
[2020-03-08] MEDS: ZOLOFT PO SCH ×2 (10:30→21:58)
[2020-03-08] MEDS ORDERED: PROTONIX INJ 40 MG VIAL ONE (10:37)
[2020-03-08] MEDS: LEVAQUIN PREMIX IV 500 MG 500 MG/100 ML BAG IV SCH (10:40)
[2020-03-08] MEDS: EXELON PATCH TD SCH (10:41)
--- NOTE | 2020-03-08 10:52 | PCM.PROG ---
Progress Note - Progress Note for Day of Date of Exam: 03/07/20 - Subjective Subjective: IS BEING TREATED FOR PNEUMONIA DUE TO COVID-19, ACUTE [place], GENERALIZED WEAKNESS, AND HYPERNATREMIA. TODAY, HE IS ALERT, LYING IN BED ON MORNING ROUNDS. HE CONTINUES WITH WEAKNESS, COUGH, AND SHORTNESS OF BREATH. HE ALSO REPORTS DIFFICULTY SWALLOWING. HE CONTINUES WITH DYSPHAGIA. SPEECH THERAPY EVALUATED PATIENT AND RECOMMENDED TO KEEP PATIENT NPO AT THIS TIME. ON EXAMINATION, HEART IS REGULAR IN RATE AND RHYTHM. BILATERAL LUNGS ARE NOTED WITH SCATTERED WHEEZING THROUGHOUT. ABDOMEN IS ROUND, SOFT, AND NON-TENDER WITH NORMAL BOWEL SOUNDS IN ALL QUADRANTS. HIS VITALS THIS MORNING ARE: 97.8-84-20-96%NC-140/65. LABS WERE OBTAINED. ABNORMAL LAB VALUES INCLUDE THE FOLLOWING: RBC 2.86, HGB 9.2, HCT 26.5, PLT COUNT 120, POTASSIUM 3.1, CHLORIDE 110, BUN 34, GLUCOSE 104, CALCIUM 7.8, FERRITIN 405, CRP 9.00, ALBUMIN 1.9. ABG REVEALED: PH 7.430, PC02 31, P02 85, HC03 20.6, 02 SAT 97, BASE EXCESS -2.8, FI02 32. A CHEST XRAY WAS OBTAINED AND REVEALED: The trachea is midline. The cardiac silhouette is unremarkable. Patchy bibasilar opacities. No pleural effusion or pneumothorax.. The bony thorax is unremarkable. HE IS CURRENTLY RECEIVING D5W AT 125 ML/HR, DUONEBS TID, PULMICORT NEBS BID, DECADRON 6MG PO DAILY, LOVENOX 80MG SC BID, LEVAQUIN 500MG IV DAILY, VITAMIN A DAILY, AND VITAMIN D DAILY. WE WILL CONTINUE WITH CURRENT PLAN OF CARE TODAY. WE WILL CONSULT FOR PLACEMENT OF PEG TUBE. OTHERWISE, WE WILL FOLLOW UP WITH AM LABS AND CHEST XRAY AND CONTINUE TO MONITOR. - Past Medical Family Social History Past Med/Fam/Surg Hx: No changes since H&P Allergies: Allergies No Known Drug Allergies Allergy (Verified 03/04/20 19:27) - Review of Systems ROS: No change since H&P - Vital Signs and I&O's Vital Signs: Temperature 98.6 F Pulse Rate [Right Radial] 86 Pulse Rate 78 Respiratory Rate 20 Blood Pressure [Right Arm] 106/64 Blood Pressure 140/70 O2 Sat by Pulse Oximetry 99 Intake and Output: Intake & Output 03/05/20 03/06/20 03/07/20 03/08/20 11:59 11:59 11:59 11:59 Intake Total 298 / 298 3536 / 3536 2996 / 2996 2057 Balance 298 / 298 3536 / 3536 2996 / 2996 2057 - Physical Exam Oriented: Person Eyes: Normal Ear: Normal Nose: Normal Throat: Normal Respiratory: Generalized, Diminished, Wheezes Cardiovascular: Normal : Normal Auscultation: Bowel Sounds: Normal Palpation: Normal Tenderness: Normal Skin: Normal Musculoskeletal: Normal Psychiatric: Normal Mood Description: Calm Affect: Normal Speech Pattern: Appropriate, Delayed, Slurred - Laboratory and Diagnostics Result Diagrams: 03/08/20 07:03/08/20 05:55 Labs: Laboratory WBC 6.3 X10^3/uL (3.6-10.0) 03/08/20 07: RBC 3.17 X10^6/uL (4.7-6.0) L 03/08/20 07:20 Hgb 10.3 g/dL (13.5-18.0) L 03/08/20 07:20 Hct 29.4 % (42.0-54.0) L 03/08/20 07:20 MCV 92.6 fL (80.0-100.0) 03/08/20 07:20 MCH 32.4 pg (27.0-34.0) 03/08/20 07: MCHC 35.0 g/dL (33.0-35.0) 03/08/20 07: RDW 15.2 % (11.6-16.5) 03/08/20 07:20 Plt Count 54 X10^3/uL (150.0-450.0) L 03/08/20 07:20 Plt Count Comment Decreased (ADEQUATE) 03/08/20 07:20 MPV 7.1 fL (7.4-11.0) L 03/08/20 07:20 Neut % (Auto) 69.6 % (42.0-75.0) 03/08/20 07:20 Lymph % (Auto) 23.2 % (21.0-51.0) 03/08/20 07:20 [place] % (Auto) 5.4 % (0.0-13.0) 03/08/20 07:20 Eos % (Auto) 1.0 % (0.9-2.9) 03/08/20 07:20 Baso % (Auto) 0.8 % (0.2-1.0) 03/08/20 07:20 Neut # (Auto) 4.4 x10^3/uL (2.2-4.8) 03/08/20 07:20 Lymph # (Auto) 1.4 X10^3/uL (1.3-2.9) 03/08/20 07:20 [place] # (Auto) 0.3 x10^3/uL (0.3-0.8) 03/08/20 07:20 Eos # (Auto) 0.1 x10^3/uL (0.0-0.2) 03/08/20 07:20 Baso # (Auto) 0.0 X10^3/uL (0.0-0.1) 03/08/20 07:20 Absolute Nucleated RBC 0.1 /100WBC 03/08/20 07:20 Total Counted 100 03/08/20 07:20 Neutrophils % (Manual) 69 % (39-76) 03/08/20 07:20 Band Neutrophils % 3 % (0-10) 03/08/20 07:20 Lymphocytes % (Manual) 23 % (13-43) 03/08/20 07:20 Monocytes % (Manual) 3 % (4-9) L 03/08/20 07:20 Eosinophils % (Manual) 2 % (0-6) 03/08/20 07:20 Plt Clumps, EDTA Rare 03/05/20 04:35 Plt Morphology Comment Normal (NORMAL) 03/08/20 07:20 RBC Morphology Normal (NORMAL) 03/08/20 07:20 PT 14.3 SECONDS (11.8-14.3) 03/04/20 20:50 INR Target Range - 03/04/20 20:50 INR 1.15 (0.8-1.3) 03/04/20 20:50 APTT 20.2 SECONDS (22.9-36.5) L 03/04/20 21:25 PTT Comment - 03/04/20 21:25 Sample Site Rr 03/08/20 05:25 ABG pH 7.440 (7.35-7.45) 03/08/20 05:25 ABG pCO2 30.0 mmHg (35.0-45.0) L 03/08/20 05:25 ABG pO2 92.0 mmHg (80.0-100.0) 03/08/20 05:25 ABG HCO3 20.4 mmol/L (22-26) L 03/08/20 05:25 ABG O2 Saturation 97.0 % (90-100) 03/08/20 05:25 ABG Base Excess -2.8 mmol/L (-2.0-2.0) L 03/08/20 05:25 Glynn Test Pos 03/08/20 05:25 A-a Gradient 99.0 mmHg 03/08/20 05:25 FiO2 32.0 03/08/20 05:25 Blood Gas Comments Yisel well eb 03/08/20 05:25 Sodium 139 mmol/L (136-145) 03/08/20 05:55 Corrected Sodium TNP 03/08/20 05:55 Potassium 3.6 mmol/L (3.5-5.1) 03/08/20 05:55 Chloride 108 mmol/L (98-107) H 03/08/20 05:55 Carbon Dioxide 20.9 mmol/L (21-32) L 03/08/20 05:55 BUN 20 mg/dL (7-18) H 03/08/20 05:55 Creatinine 1.13 mg/dL (0.70-1.30) 03/08/20 05:55 Est GFR (MDRD) Af Amer > 60 (>60) 03/08/20 05:55 Est GFR (MDRD) Non-Af > 60 (>60) 03/08/20 05:55 Glucose 75 mg/dL (65-99) 03/08/20 05:55 Calcium 8.1 mg/dL (8.5-10.1) L 03/08/20 05:55 Corrected Calcium 9.7 mg/dL (8.5-10.1) 03/08/20 05:55 Magnesium 2.0 mg/dL (1.7-2.9) 03/08/20 05:55 Ferritin 387 ng/mL (26-388) 03/08/20 05:55 Total Bilirubin 0.40 mg/dL (0.2-1.0) 03/08/20 05:55 AST 36 Units/L (15-37) 03/08/20 05:55 ALT 35 Units/L (12-78) 03/08/20 05:55 Alkaline Phosphatase 58 Units/L (46-116) 03/08/20 05:55 Creatine Kinase 78 Units/L (39-308) 03/06/20 04:25 CK-MB (CK-2) 7.7 ng/mL (0-4.0) H* 03/06/20 04:25 CK/CKMB % Calc 9.9 % (<4) 03/06/20 04:25 Troponin I 7.19 ng/mL (0-1.5) H* 03/06/20 04:25 C-Reactive Protein 6.00 mg/L (0-3.0) H 03/08/20 05:55 B-Natriuretic Peptide 444 pg/mL (0-79) H 03/05/20 04:35 Total Protein 5.4 g/dL (6.4-8.2) L 03/08/20 05:55 Albumin 2.0 g/dL (3.4-5.0) L 03/08/20 05:55 Globulin 3.4 g/dL (2.5-4.5) 03/08/20 05:55 Albumin/Globulin Ratio 0.6 Ratio (1.1-2.1) L 03/08/20 05:55 SARS-CoV-2 (PCR) Positive (NEGATIVE) A 03/04/20 22:31 - Plan (1) Pneumonia due to COVID-19 virus Status: Acute Plan: D5W AT 125 ML/HR, DUONEBS TID, PULMICORT NEBS BID, DECADRON 6MG PO DAILY, LOVENOX 80MG SC BID, LEVAQUIN 500MG IV DAILY, VITAMIN A DAILY, AND VITAMIN D DAILY. WE WILL REVIEW HIS HOME MEDICATIONS. SUPPLEMENTAL OXYGEN (2) Acute [place] Status: Acute Qualifiers: Myocardial infarction type: unspecified Involved coronary artery: unspecified coronary artery Qualified Code(s): I21.9 - Acute myocardial infarction, unspecified (3) Generalized weakness Status: Acute (4) Hypernatremia Status: Acute (5) Dehydration Status: Acute (6) Dysphagia Status: Acute Qualifiers: Dysphagia type: unspecified Qualified Code(s): R13.10 - Dysphagia, unspecified Plan: NPO, CONSULT FOR PEG TUBE
[2020-03-08] MEDS ORDERED: STERILE WATER IRRIGATION IR ONE (12:35)
[2020-03-08] MEDS: PEPCID 20 MG IV PREMIX* 20 MG/50 ML BAG IV SCH ×2 (16:07→21:56)
[2020-03-08] MEDS: ZOCOR TAB 10 MG PO SCH (21:56)
[2020-03-08] MEDS: LOVENOX INJ 30 MG SYR SC SCH (21:56)
[2020-03-08] MEDS: PROTONIX INJ 40 MG VIAL IVP SCH (21:56)
[2020-03-09] MEDS: K-RIDER 10 MEQ/NS 100 ML 10 MEQ/100 ML BAG IV PRN (01:12)
[2020-03-09] MEDS: D5W 1000 ML IV 1,000 ML IV SCH ×4 (01:59→21:30)
[2020-03-09 03:39] LABS: BASOPHILS % (AUTO) 0.4 % (0.2-1.0); EOSINOPHILS # (AUTO) 0.1 x10^3/uL (0.0-0.2); HEMATOCRIT 26.7 % (42.0-54.0); HEMOGLOBIN 9.3 g/dL (13.5-18.0); LYMPHOCYTES # (AUTO) 1.1 X10^3/uL (1.3-2.9); MEAN CORPUSCULAR HEMOGLOBIN 32.2 pg (27.0-34.0); MEAN CORPUSCULAR HGB CONC 34.9 g/dL (33.0-35.0); MEAN CORPUSCULAR VOLUME 92.3 fL (80.0-100.0); MEAN PLATELET VOLUME 8.5 fL (7.4-11.0); MONOCYTES # (AUTO) 0.3 x10^3/uL (0.3-0.8); MONOCYTES % (AUTO) 4.6 % (0.0-13.0); NEUTROPHILS # (AUTO) 5.6 x10^3/uL (2.2-4.8); PLATELET COUNT 69 X10^3/uL (150.0-450.0); RED BLOOD COUNT 2.89 X10^6/uL (4.7-6.0); RED CELL DISTRIBUTION WIDTH 15.2 % (11.6-16.5)
[2020-03-09 03:47] LABS: ALANINE AMINOTRANSFERASE 51 Units/L (12-78); ALBUMIN 1.8 g/dL (3.4-5.0); ALKALINE PHOSPHATASE 53 Units/L (46-116); ASPARTATE AMINO TRANSFERASE 38 Units/L (15-37); BLOOD UREA NITROGEN 12 mg/dL (7-18); CALCIUM 7.6 mg/dL (8.5-10.1); CARBON DIOXIDE 25.4 mmol/L (21-32); CHLORIDE 109 mmol/L (98-107); COR CA(FOR HYPOALB) 9.4 mg/dL (8.5-10.1); CREATININE 1.07 mg/dL (0.70-1.30); SODIUM 140 mmol/L (136-145); TOTAL PROTEIN 4.9 g/dL (6.4-8.2); eGFR NON BLACK RACES > 60 (>60)
[2020-03-09 03:48] LABS: PLATELET MORPHOLOGY COMMENT NORMAL (NORMAL)
--- NOTE | 2020-03-09 06:00 | RAD ---
HISTORYSOBSTUDYCHEST, 1 [id number] view of the chestFINDINGSCardiac and mediastinal contours appear normal. Worsened right upper lobe airspace disease. There is worsened left base interstitial opacity. No pleural effusion or pneumothorax.IMPRESSIONThe right upper lobe airspace disease and worsened left base interstitial infiltrates suspicious for pneumonia.Electronically signed by: Abraham Conner (Mar 09, 2020 05:59:54)
[2020-03-09] MEDS: DUONEB 0.5 MG/3 MG (3 mL) NEB SCH ×3 (06:49→21:40)
[2020-03-09] MEDS ORDERED: MICRO K EXTEN CAP 10 MEQ PO PRN (07:23)
[2020-03-09] MEDS ORDERED: K-RIDER 10 MEQ/NS 100 ML 10 MEQ/100 ML BAG IV PRN (07:23)
[2020-03-09] MEDS ORDERED: POTASSIUM CHL 60 MEQ/NS 0.45% 500 ML IV PRN (07:23)
[2020-03-09] MEDS ORDERED: MAGNESIUM SULFATE 1 GRAM/100 mL PREMIX 1 GM/100 ML BAG IV PRN (07:23)
[2020-03-09] MEDS ORDERED: K-DUR TAB 20 MEQ PO PRN (07:23)
[2020-03-09] MEDS ORDERED: POTASSIUM CHL 40 MEQ/NS 0.45% 500 ML IV PRN (07:23)
[2020-03-09] MEDS ORDERED: POTASSIUM CHLORIDE LIQ 20 MEQ UDC PO PRN (07:23)
[2020-03-09] MEDS ORDERED: KLOR-CON PO PRN (07:23)
[2020-03-09] MEDS: PULMICORT NEB TX 0.5 MG NEB SCH ×2 (09:50→21:40)
[2020-03-09] MEDS: LEVAQUIN PREMIX IV 500 MG 500 MG/100 ML BAG IV SCH (09:51)
[2020-03-09] MEDS: VITAMIN D3 125 mcg (5,000 UNITS) PO SCH (09:55)
[2020-03-09] MEDS: DECADRON TAB PO SCH (09:55)
[2020-03-09] MEDS: ZOLOFT PO SCH ×2 (09:55→21:30)
[2020-03-09] MEDS: NAMENDA TAB 10 MG PO SCH ×2 (09:55→21:30)
[2020-03-09] MEDS: MEGACE PO SCH ×2 (09:55→21:30)
[2020-03-09] MEDS: CARDIZEM CD 120 MG 24-HR PO SCH (09:55)
[2020-03-09] MEDS: APRESOLINE TAB 25 MG PO SCH ×2 (09:55→21:30)
[2020-03-09] MEDS: FOLIC ACID TAB 1 MG PO SCH (09:56)
[2020-03-09] MEDS: PROTONIX INJ 40 MG VIAL IVP SCH ×2 (09:56→21:30)
[2020-03-09] MEDS: FLOMAX PO SCH (09:56)
[2020-03-09] MEDS: ZESTRIL TAB 10 MG PO SCH (09:56)
[2020-03-09] MEDS: MIRALAX POWDER (1 DOSE 17 G) PO SCH (09:56)
[2020-03-09] MEDS: PEPCID 20 MG IV PREMIX* 20 MG/50 ML BAG IV SCH ×2 (09:56→21:30)
[2020-03-09] MEDS: LOVENOX INJ 30 MG SYR SC SCH ×2 (09:57→21:30)
[2020-03-09] MEDS: EXELON PATCH TD SCH ×2 (09:57→14:59)
[2020-03-09] MEDS: VITAMIN A PO SCH (09:57)
--- NOTE | 2020-03-09 11:38 | PCM.PROG ---
Progress Note - Progress Note for Day of Date of Exam: 03/08/20 - Subjective Subjective: IS BEING TREATED FOR PNEUMONIA DUE TO COVID-19, ACUTE [place], GENERALIZED WEAKNESS, DYSPHAGIA, AND HYPERNATREMIA. TODAY, HE IS ALERT, LYING IN BED ON MORNING ROUNDS. HE CONTINUES WITH WEAKNESS, COUGH, SHORTNESS OF BREATH, AND DIFFICULTY SWALLOWING. ON EXAMINATION, HEART IS REGULAR IN RATE AND RHYTHM. BILATERAL LUNGS ARE NOTED WITH SCATTERED WHEEZING THROUGHOUT. ABDOMEN IS ROUND, SOFT, AND NON-TENDER WITH NORMAL BOWEL SOUNDS IN ALL QUADRANTS. HIS VITALS THIS MORNING ARE: 98.6-86-20-99%NC-106/64. LABS WERE OBTAINED. ABNORMAL LAB VALUES INCLUDE THE FOLLOWING: RBC 3.17, HGB 10.3, HCT 29.4, PLT COUNT 54, CHLORIDE 108, BUN 20, CALCIUM 8.1, CRP 6.00, TOTAL PROTEIN 5.4, ALBUMIN 2.0. AN ABG WAS OBTAINED AND REVEALED: PH 7.440, PC02 30, P02 92, HC03 20.4, 02 SAT 97, BASE EXCESS -2.8, FI02 32. A CHEST XRAY WAS OBTAINED AND REVEALED: No definite infiltrates. Minimal bibasilar subsegmental atelectasis. CONSULTED WITH PATIENT AND PLANS FOR AN EGD AND PLACEMENT OF A PEG TUBE THIS MORNING. WE ARE IN AGREEMENT WITH PLANS. HE IS CURRENTLY RECEIVING D5W AT 125 ML/HR, DUONEBS TID, PULMICORT NEBS BID, DECADRON 6MG PO DAILY, LEVAQUIN 500MG IV DAILY, VITAMIN A DAILY, AND VITAMIN D DAILY. WE WILL CONTINUE WITH CURRENT PLAN OF CARE TODAY. OTHERWISE, WE WILL FOLLOW UP WITH AM LABS AND CHEST XRAY AND CONTINUE TO MONITOR. - Past Medical Family Social History Past Med/Fam/Surg Hx: No changes since H&P Allergies: Allergies No Known Drug Allergies Allergy (Verified 03/04/20 19:27) - Review of Systems ROS: No change since H&P - Vital Signs and I&O's Vital Signs: Temperature 98.4 F Pulse Rate [Right Radial] 86 Pulse Rate 88 Respiratory Rate 18 Blood Pressure [Right Arm] 128/63 Blood Pressure 140/70 O2 Sat by Pulse Oximetry 99 Intake and Output: Intake & Output 03/06/20 03/07/20 03/08/20 03/09/20 11:59 11:59 11:59 11:59 Intake Total 3536 / 3536 2996 / 2996 2087 Balance 3536 / 3536 2996 / 2996 2087 - Physical Exam Oriented: Person Eyes: Normal Ear: Normal Nose: Normal Throat: Normal Respiratory: Generalized, Diminished, Wheezes Cardiovascular: Normal : Normal Auscultation: Bowel Sounds: Normal Tenderness: Normal Skin: Normal Musculoskeletal: Normal Psychiatric: Normal Mood Description: Calm Affect: Normal Speech Pattern: Appropriate, Delayed - Laboratory and Diagnostics Result Diagrams: 03/09/20 03:15 03/09/20 03:15 Labs: Laboratory WBC 7.0 X10^3/uL (3.6-10.0) 03/09/20 03:15 RBC 2.89 X10^6/uL (4.7-6.0) L 03/09/20 03:15 Hgb 9.3 g/dL (13.5-18.0) L 03/09/20 03:15 Hct 26.7 % (42.0-54.0) L 03/09/20 03:15 MCV 92.3 fL (80.0-100.0) 03/09/20 03:15 MCH 32.2 pg (27.0-34.0) 03/09/20 03:15 MCHC 34.9 g/dL (33.0-35.0) 03/09/20 03:15 RDW 15.2 % (11.6-16.5) 03/09/20 03:15 Plt Count 69 X10^3/uL (150.0-450.0) L 03/09/20 03:15 Plt Count Comment Decreased (ADEQUATE) 03/09/20 03:15 MPV 8.5 fL (7.4-11.0) 03/09/20 03:15 Neut % (Auto) 79.0 % (42.0-75.0) H 03/09/20 03:15 Lymph % (Auto) 15.0 % (21.0-51.0) L 03/09/20 03:15 [place] % (Auto) 4.6 % (0.0-13.0) 03/09/20 03:15 Eos % (Auto) 1.0 % (0.9-2.9) 03/09/20 03:15 Baso % (Auto) 0.4 % (0.2-1.0) 03/09/20 03:15 Neut # (Auto) 5.6 x10^3/uL (2.2-4.8) H 03/09/20 03:15 Lymph # (Auto) 1.1 X10^3/uL (1.3-2.9) L 03/09/20 03:15 [place] # (Auto) 0.3 x10^3/uL (0.3-0.8) 03/09/20 03:15 Eos # (Auto) 0.1 x10^3/uL (0.0-0.2) 03/09/20 03:15 Baso # (Auto) 0.0 X10^3/uL (0.0-0.1) 03/09/20 03:15 Absolute Nucleated RBC 0.1 /100WBC 03/09/20 03:15 Total Counted 100 03/09/20 03:15 Neutrophils % (Manual) 79 % (39-76) H 03/09/20 03:15 Band Neutrophils % 3 % (0-10) 03/08/20 07:20 Lymphocytes % (Manual) 16 % (13-43) 03/09/20 03:15 Monocytes % (Manual) 4 % (4-9) 03/09/20 03:15 Eosinophils % (Manual) 2 % (0-6) 03/08/20 07:20 Plt Clumps, EDTA Rare 03/05/20 04:35 Plt Morphology Comment Normal (NORMAL) 03/09/20 03:15 RBC Morphology Normal (NORMAL) 03/09/20 03:15 PT 14.3 SECONDS (11.8-14.3) 03/04/20 20:50 INR Target Range - 03/04/20 20:50 INR 1.15 (0.8-1.3) 03/04/20 20:50 APTT 20.2 SECONDS (22.9-36.5) L 03/04/20 21:25 PTT Comment - 03/04/20 21:25 Sample Site Rr 03/08/20 05:25 ABG pH 7.440 (7.35-7.45) 03/08/20 05:25 ABG pCO2 30.0 mmHg (35.0-45.0) L 03/08/20 05:25 ABG pO2 92.0 mmHg (80.0-100.0) 03/08/20 05:25 ABG HCO3 20.4 mmol/L (22-26) L 03/08/20 05:25 ABG O2 Saturation 97.0 % (90-100) 03/08/20 05:25 ABG Base Excess -2.8 mmol/L (-2.0-2.0) L 03/08/20 05:25 Glynn Test Pos 03/08/20 05:25 A-a Gradient 99.0 mmHg 03/08/20 05:25 FiO2 32.0 03/08/20 05:25 Blood Gas Comments Yisel well eb 03/08/20 05:25 Sodium 140 mmol/L (136-145) 03/09/20 03:15 Corrected Sodium TNP 03/09/20 03:15 Potassium 3.3 mmol/L (3.5-5.1) L 03/09/20 03:15 Chloride 109 mmol/L (98-107) H 03/09/20 03:15 Carbon Dioxide 25.4 mmol/L (21-32) 03/09/20 03:15 BUN 12 mg/dL (7-18) 03/09/20 03:15 Creatinine 1.07 mg/dL (0.70-1.30) 03/09/20 03:15 Est GFR (MDRD) Af Amer > 60 (>60) 03/09/20 03:15 Est GFR (MDRD) Non-Af > 60 (>60) 03/09/20 03:15 Glucose 90 mg/dL (65-99) 03/09/20 03:15 Calcium 7.6 mg/dL (8.5-10.1) L 03/09/20 03:15 Corrected Calcium 9.4 mg/dL (8.5-10.1) 03/09/20 03:15 Magnesium 1.6 mg/dL (1.7-2.9) L 03/09/20 03:15 Ferritin 366 ng/mL (26-388) 03/09/20 03:15 Total Bilirubin 0.40 mg/dL (0.2-1.0) 03/09/20 03:15 AST 38 Units/L (15-37) H 03/09/20 03:15 ALT 51 Units/L (12-78) 03/09/20 03:15 Alkaline Phosphatase 53 Units/L (46-116) 03/09/20 03:15 Creatine Kinase 78 Units/L (39-308) 03/06/20 04:25 CK-MB (CK-2) 7.7 ng/mL (0-4.0) H* 03/06/20 04:25 CK/CKMB % Calc 9.9 % (<4) 03/06/20 04:25 Troponin I 7.19 ng/mL (0-1.5) H* 03/06/20 04:25 C-Reactive Protein 18.10 mg/L (0-3.0) H 03/09/20 03:15 B-Natriuretic Peptide 444 pg/mL (0-79) H 03/05/20 04:35 Total Protein 4.9 g/dL (6.4-8.2) L 03/09/20 03:15 Albumin 1.8 g/dL (3.4-5.0) L 03/09/20 03:15 Globulin 3.1 g/dL (2.5-4.5) 03/09/20 03:15 Albumin/Globulin Ratio 0.6 Ratio (1.1-2.1) L 03/09/20 03:15 SARS-CoV-2 (PCR) Positive (NEGATIVE) A 03/04/20 22:31 - Plan (1) Pneumonia due to COVID-19 virus Status: Acute Plan: D5W AT 125 ML/HR, DUONEBS TID, PULMICORT NEBS BID, DECADRON 6MG PO DAILY, LOVENOX 80MG SC BID, LEVAQUIN 500MG IV DAILY, VITAMIN A DAILY, AND VITAMIN D DAILY. WE WILL REVIEW HIS HOME MEDICATIONS. SUPPLEMENTAL OXYGEN (2) Acute NM Status: Acute Qualifiers: Myocardial infarction type: unspecified Involved coronary artery: unspecified coronary artery Qualified Code(s): I21.9 - Acute myocardial infarction, unspecified (3) Generalized weakness Status: Acute (4) Hypernatremia Status: Acute (5) Dehydration Status: Acute (6) Dysphagia Status: Acute Qualifiers: Dysphagia type: unspecified Qualified Code(s): R13.10 - Dysphagia, unspecified Plan: PEG TUBE PLACEMENT TODAY
--- NOTE | 2020-03-09 11:44 | PCM.PROG ---
Progress Note - Progress Note for Day of Date of Exam: 03/09/20 - Subjective Subjective: IS BEING TREATED FOR PNEUMONIA DUE TO COVID-19, ACUTE [place], GENERALIZED WEAKNESS, AND HYPERNATREMIA. HE IS DAY 1 STATUS POST PLACEMENT OF PEG TUBE. TODAY, HE IS ALERT, LYING IN BED ON MORNING ROUNDS. HE CONTINUES WITH WEAKNESS, COUGH, SHORTNESS OF BREATH, AND DIFFICULTY SWALLOWING. HE DOES REPORT SLIGHT IMPROVEMENT IN SYMPTOMS SINCE ONE DAY PRIOR. ON EXAMINATION, HEART IS REGULAR IN RATE AND RHYTHM. BILATERAL LUNGS ARE NOTED WITH DIMINISHED LUNG SOUNNDS THROUGHOUT. ABDOMEN IS ROUND, SOFT, AND NON-TENDER WITH NORMAL BOWEL SOUNDS IN ALL QUADRANTS. HIS VITALS THIS MORNING ARE: 98.4-86-18-98%NC-128/63. LABS WERE OBTAINED. ABNORMAL LAB VALUES INCLUDE THE FOLLOWING: RBC 2.89, HGB 9 .3, HCT 26.7, PLT COUNT 69, POTASSIUM 3.3, CHLORIDE 109, CALCIUM 7.6, MAGNESIUM 1.6, AST 38, CRP 18.10, TOTAL PROTEIN 4.9, ALBUMIN 1.8. A CHEST XRAY WAS OBTAINED AND REVEALED: The right upper lobe airspace disease and worsened left base interstitial infiltrates suspicious for pneumonia. HE IS CURRENTLY RECEIVING D5W AT 125 ML/HR, DUONEBS TID, PULMICORT NEBS BID, LOVENOX 30MG SC BID, DECADRON 6MG PO DAILY, LEVAQUIN 500MG IV DAILY, VITAMIN A DAILY, VITAMIN D DAILY, AND THE POTASSIUM AND MAGNESIUM PROTOCOLS. HOME MEDICATIONS WERE RESUMED. WE WILL START TUBE FEEDINGS AT 30 ML/HR TODAY WITH ENSURE. OTHERWISE, WE WILL CONTINUE WITH CURRENT PLAN OF CARE. WE WILL FOLLOW UP WITH AM LABS AND CHEST XRA Y AND CONTINUE TO MONITOR. - Past Medical Family Social History Past Med/Fam/Surg Hx: No changes since H&P Allergies: Allergies No Known Drug Allergies Allergy (Verified 03/04/20 19:27) - Review of Systems ROS: No change since H&P - Vital Signs and I&O's Vital Signs: Temperature 98.4 F Pulse Rate [Right Radial] 86 Pulse Rate 88 Respiratory Rate 18 Blood Pressure [Right Arm] 128/63 Blood Pressure 140/70 O2 Sat by Pulse Oximetry 99 Intake and Output: Intake & Output 08/24/20 08/25/20 08/26/20 08/27/20 11:59 11:59 11:59 11:59 Intake Total 3536 / 3536 2996 / 2996 2087 Balance 3536 / 3536 2996 / 2996 2087 - Physical Exam Oriented: Person Eyes: Normal Ear: Normal Nose: Normal Throat: Normal Respiratory: Generalized, Diminished, Wheezes Cardiovascular: Normal : Normal Auscultation: Bowel Sounds: Normal Tenderness: Normal Skin: Normal Musculoskeletal: Normal Psychiatric: Normal Mood Description: Calm Affect: Normal Speech Pattern: Appropriate, Delayed - Laboratory and Diagnostics Result Diagrams: 03/09/20 03:15 03/09/20 03:15 Labs: Laboratory WBC 7.0 X10^3/uL (3.6-10.0) 03/09/20 03:15 RBC 2.89 X10^6/uL (4.7-6.0) L 03/09/20 03:15 Hgb 9.3 g/dL (13.5-18.0) L 03/09/20 03:15 Hct 26.7 % (42.0-54.0) L 03/09/20 03:15 MCV 92.3 fL (80.0-100.0) 03/09/20 03:15 MCH 32.2 pg (27.0-34.0) 03/09/20 03:15 MCHC 34.9 g/dL (33.0-35.0) 03/09/20 03:15 RDW 15.2 % (11.6-16.5) 03/09/20 03:15 Plt Count 69 X10^3/uL (150.0-450.0) L 03/09/20 03:15 Plt Count Comment Decreased (ADEQUATE) 03/09/20 03:15 MPV 8.5 fL (7.4-11.0) 03/09/20 03:15 Neut % (Auto) 79.0 % (42.0-75.0) H 03/09/20 03:15 Lymph % (Auto) 15.0 % (21.0-51.0) L 03/09/20 03:15 [place] % (Auto) 4.6 % (0.0-13.0) 03/09/20 03:15 Eos % (Auto) 1.0 % (0.9-2.9) 03/09/20 03:15 Baso % (Auto) 0.4 % (0.2-1.0) 03/09/20 03:15 Neut # (Auto) 5.6 x10^3/uL (2.2-4.8) H 03/09/20 03:15 Lymph # (Auto) 1.1 X10^3/uL (1.3-2.9) L 03/09/20 03:15 [place] # (Auto) 0.3 x10^3/uL (0.3-0.8) 03/09/20 03:15 Eos # (Auto) 0.1 x10^3/uL (0.0-0.2) 03/09/20 03:15 Baso # (Auto) 0.0 X10^3/uL (0.0-0.1) 03/09/20 03:15 Absolute Nucleated RBC 0.1 /100WBC 03/09/20 03:15 Total Counted 100 03/09/20 03:15 Neutrophils % (Manual) 79 % (39-76) H 03/09/20 03:15 Band Neutrophils % 3 % (0-10) 03/08/20 07:20 Lymphocytes % (Manual) 16 % (13-43) 03/09/20 03:15 Monocytes % (Manual) 4 % (4-9) 03/09/20 03:15 Eosinophils % (Manual) 2 % (0-6) 03/08/20 07:20 Plt Clumps, EDTA Rare 03/05/20 04:35 Plt Morphology Comment Normal (NORMAL) 03/09/20 03:15 RBC Morphology Normal (NORMAL) 03/09/20 03:15 PT 14.3 SECONDS (11.8-14.3) 03/04/20 20:50 INR Target Range - 03/04/20 20:50 INR 1.15 (0.8-1.3) 03/04/20 20:50 APTT 20.2 SECONDS (22.9-36.5) L 03/04/20 21:25 PTT Comment - 03/04/20 21:25 Sample Site Rr 03/08/20 05:25 ABG pH 7.440 (7.35-7.45) 03/08/20 05:25 ABG pCO2 30.0 mmHg (35.0-45.0) L 03/08/20 05:25 ABG pO2 92.0 mmHg (80.0-100.0) 03/08/20 05:25 ABG HCO3 20.4 mmol/L (22-26) L 03/08/20 05:25 ABG O2 Saturation 97.0 % (90-100) 03/08/20 05:25 ABG Base Excess -2.8 mmol/L (-2.0-2.0) L 03/08/20 05:25 Glynn Test Pos 03/08/20 05:25 A-a Gradient 99.0 mmHg 03/08/20 05:25 FiO2 32.0 03/08/20 05:25 Blood Gas Comments Yisel well eb 03/08/20 05:25 Sodium 140 mmol/L (136-145) 03/09/20 03:15 Corrected Sodium TNP 03/09/20 03:15 Potassium 3.3 mmol/L (3.5-5.1) L 03/09/20 03:15 Chloride 109 mmol/L (98-107) H 03/09/20 03:15 Carbon Dioxide 25.4 mmol/L (21-32) 03/09/20 03:15 BUN 12 mg/dL (7-18) 03/09/20 03:15 Creatinine 1.07 mg/dL (0.70-1.30) 03/09/20 03:15 Est GFR (MDRD) Af Amer > 60 (>60) 03/09/20 03:15 Est GFR (MDRD) Non-Af > 60 (>60) 03/09/20 03:15 Glucose 90 mg/dL (65-99) 03/09/20 03:15 Calcium 7.6 mg/dL (8.5-10.1) L 03/09/20 03:15 Corrected Calcium 9.4 mg/dL (8.5-10.1) 03/09/20 03:15 Magnesium 1.6 mg/dL (1.7-2.9) L 03/09/20 03:15 Ferritin 366 ng/mL (26-388) 03/09/20 03:15 Total Bilirubin 0.40 mg/dL (0.2-1.0) 03/09/20 03:15 AST 38 Units/L (15-37) H 03/09/20 03:15 ALT 51 Units/L (12-78) 03/09/20 03:15 Alkaline Phosphatase 53 Units/L (46-116) 03/09/20 03:15 Creatine Kinase 78 Units/L (39-308) 03/06/20 04:25 CK-MB (CK-2) 7.7 ng/mL (0-4.0) H* 03/06/20 04:25 CK/CKMB % Calc 9.9 % (<4) 03/06/20 04:25 Troponin I 7.19 ng/mL (0-1.5) H* 03/06/20 04:25 C-Reactive Protein 18.10 mg/L (0-3.0) H 03/09/20 03:15 B-Natriuretic Peptide 444 pg/mL (0-79) H 03/05/20 04:35 Total Protein 4.9 g/dL (6.4-8.2) L 03/09/20 03:15 Albumin 1.8 g/dL (3.4-5.0) L 03/09/20 03:15 Globulin 3.1 g/dL (2.5-4.5) 03/09/20 03:15 Albumin/Globulin Ratio 0.6 Ratio (1.1-2.1) L 03/09/20 03:15 SARS-CoV-2 (PCR) Positive (NEGATIVE) A 03/04/20 22:31 - Plan (1) Pneumonia due to COVID-19 virus Status: Acute Plan: D5W AT 125 ML/HR, DUONEBS TID, PULMICORT NEBS BID, DECADRON 6MG PO DAILY, LOVENOX 80MG SC BID, LEVAQUIN 500MG IV DAILY, VITAMIN A DAILY, AND VITAMIN D DAILY. WE WILL REVIEW HIS HOME MEDICATIONS. SUPPLEMENTAL OXYGEN (2) Acute [place] Status: Acute Qualifiers: Myocardial infarction type: unspecified Involved coronary artery: unspecified coronary artery Qualified Code(s): I21.9 - Acute myocardial infarction, unspecified (3) Generalized weakness Status: Acute (4) Hypernatremia Status: Acute (5) Dehydration Status: Acute (6) Dysphagia Status: Acute Qualifiers: Dysphagia type: unspecified Qualified Code(s): R13.10 - Dysphagia, unspecified Plan: NPO, MEDICATIONS/NUTRITION VIA PEG TUBE
[2020-03-09 12:10] LABS: CKMB % 9.4 % (<4); CREATINE KINASE MB 3.4 ng/mL (0-4.0); TROPONIN I 0.83 ng/mL (0-1.5)
[2020-03-09] MEDS: ZOCOR TAB 10 MG PO SCH (21:30)
[2020-03-10] MEDS: D5W 1000 ML IV 1,000 ML IV SCH ×2 (00:17→11:26)
[2020-03-10 05:36] LABS: ALANINE AMINOTRANSFERASE 53 Units/L (12-78); ALBUMIN 1.9 g/dL (3.4-5.0); ALKALINE PHOSPHATASE 56 Units/L (46-116); ASPARTATE AMINO TRANSFERASE 27 Units/L (15-37); BLOOD UREA NITROGEN 10 mg/dL (7-18); CALCIUM 7.9 mg/dL (8.5-10.1); CARBON DIOXIDE 23.7 mmol/L (21-32); CHLORIDE 106 mmol/L (98-107); COR CA(FOR HYPOALB) 9.6 mg/dL (8.5-10.1); COR NA(FOR HYPERGLY) 137 mmol/L (136-145); CREATININE 0.98 mg/dL (0.70-1.30); MAGNESIUM 2.1 mg/dL (1.7-2.9); SODIUM 137 mmol/L (136-145); TOTAL PROTEIN 5.2 g/dL (6.4-8.2); eGFR NON BLACK RACES > 60 (>60)
[2020-03-10 05:57] LABS: BASOPHILS % (AUTO) 0.5 % (0.2-1.0); EOSINOPHILS # (AUTO) 0.1 x10^3/uL (0.0-0.2); EOSINOPHILS % (AUTO) 0.6 % (0.9-2.9); HEMATOCRIT 25.5 % (42.0-54.0); LYMPHOCYTES # (AUTO) 0.7 X10^3/uL (1.3-2.9); LYMPHOCYTES % (AUTO) 6.8 % (21.0-51.0); MEAN CORPUSCULAR HEMOGLOBIN 32.6 pg (27.0-34.0); MEAN CORPUSCULAR HGB CONC 35.4 g/dL (33.0-35.0); MEAN CORPUSCULAR VOLUME 91.9 fL (80.0-100.0); MEAN PLATELET VOLUME 7.9 fL (7.4-11.0); MONOCYTES # (AUTO) 0.4 x10^3/uL (0.3-0.8); MONOCYTES % (AUTO) 4.2 % (0.0-13.0); NEUTROPHILS # (AUTO) 8.7 x10^3/uL (2.2-4.8); NEUTROPHILS % (AUTO) 87.9 % (42.0-75.0); RED BLOOD COUNT 2.78 X10^6/uL (4.7-6.0); RED CELL DISTRIBUTION WIDTH 15.4 % (11.6-16.5)
--- NOTE | 2020-03-10 06:07 | RAD ---
HISTORYSOBSTUDYCHEST, 1 [id number] trachea is midline. The cardiac silhouette is unremarkable the. Right upper and left basilar patchy infiltrates unchanged. No pneumothorax.. The bony thorax is unremarkable.IMPRESSIONRight upper lobe and left basilar patchy infiltrates unchanged from 03/09/2020Electronically signed by: Zachary Samayoa (Mar 10, 2020 06:06:37)
[2020-03-10 06:42] LABS: WHITE BLOOD COUNT 9.9 X10^3/uL (3.6-10.0)
[2020-03-10 06:43] LABS: PLATELET COUNT 122 X10^3/uL (150.0-450.0)
[2020-03-10 06:44] LABS: PLATELET MORPHOLOGY COMMENT NORMAL (NORMAL)
[2020-03-10 07:03] LABS: ABG BASE EXCESS -0.4 mmol/L (-2.0-2.0); ABG HCO3 21.8 mmol/L (22-26)
[2020-03-10 07:05] LABS: ABG ALLEN TEST POS
[2020-03-10] MEDS: DUONEB 0.5 MG/3 MG (3 mL) NEB SCH ×2 (07:09→14:25)
[2020-03-10] MEDS: EXELON PATCH TD SCH (09:38)
[2020-03-10] MEDS: LOVENOX INJ 30 MG SYR SC SCH (09:39)
[2020-03-10] MEDS: LEVAQUIN PREMIX IV 500 MG 500 MG/100 ML BAG IV SCH (09:39)
[2020-03-10] MEDS: PEPCID 20 MG IV PREMIX* 20 MG/50 ML BAG IV SCH (09:40)
[2020-03-10] MEDS: PROTONIX INJ 40 MG VIAL IVP SCH (09:42)
[2020-03-10] MEDS: NAMENDA TAB 10 MG PO SCH (09:42)
[2020-03-10] MEDS: ZOLOFT PO SCH (09:43)
[2020-03-10] MEDS: FLOMAX PO SCH (09:43)
[2020-03-10] MEDS: CARDIZEM CD 120 MG 24-HR PO SCH (09:43)
[2020-03-10] MEDS: VITAMIN D3 125 mcg (5,000 UNITS) PO SCH (09:44)
[2020-03-10] MEDS: APRESOLINE TAB 25 MG PO SCH (09:44)
[2020-03-10] MEDS: ZESTRIL TAB 10 MG PO SCH (09:44)
[2020-03-10] MEDS: FOLIC ACID TAB 1 MG PO SCH (09:44)
[2020-03-10] MEDS: MEGACE PO SCH (09:45)
[2020-03-10] MEDS: PULMICORT NEB TX 0.5 MG NEB SCH (09:50)
[2020-03-10] MEDS: VITAMIN A PO SCH (10:36)
[2020-03-10] MEDS: MIRALAX POWDER (1 DOSE 17 G) PO SCH (10:36)
[2020-03-10 12:39] VITALS: BP 119/58
== END 2020-03-10 18:18 | DRG 177 ==
LOC: ER 18:50 → MED/SURG 23:56
PROVIDERS: ADMIT Internal Medicine; ATTEND Internal Medicine